=== PATIENT | male | born 1965 | race Caucasian/White ===

== ENCOUNTER 2017-05-16 15:46 | Observation (INO) | payer MEDICAID ==
[~2017-05-16] VITALS: Ht 180.3 cm; Wt 148.4 kg
--- NOTE | ~2017-05-16 | HEMODYNAMI ---
PATIENT:DORIAN ALLAN MEDICAL RECORD: [id number] : 67 LOCATION:[address] ADMISSION DATE: 05/16/17 Generatedon:05/17/20179:22 Patient name: DORIAN ALLAN Patient #: [id number] SSN: : 1965 Date of study: 05/17/2017 Page: Of Hemodynamic Procedure Report Patient Data Patient Demographics Procedure consent was obtained First Name: DORIAN Gender: Male Last Name: JERRELL : 1965 Patient #: [id number] Age: 51 year(s) Race: Additional ID: [id number] Contact details Address: [facility] [address] State: [place] City: [place] Zip code: [address] Past Medical History Allergies: No known allergies Admission Admission Data Admission Date: 05/16/2017 Admission Time: 21:19 Room #: 2104 Procedure Procedure Types Cath Procedure Diagnostic Procedure LHC LHC w/Coronaries Miscellaneous Procedures Moderate Sedation up to 30 minutes Procedure Description Procedure Date Procedure Date: 05/17/2017 Procedure Start Time: 9:04 Procedure End Time: 9:21 Procedure Staff Name Function Avtar Monge MD Performing Physician Darlyn Liu RT Monitor Ryan Fletcher RT Scrub Irvin Tsang RN Nurse Procedure Data Cath Procedure Fluoroscopy Diagnostic fluoroscopy Total fluoroscopy Time: 1.6 time: 1.6 min min Diagnostic fluoroscopy Total fluoroscopy dose: 725 dose: 725 mGy mGy Contrast Material Contrast Material Type Amount (ml) Isovue 300 47 Entry Location Entry Primary Successful Side Size Upsize Upsize Entry Closure Succes sful Closure Location (Fr) 1 (Fr) 2 (Fr) Remarks Device Remarks Femoral Right 5 Fr Exoseal artery Estimated blood loss: 5 ml Diagnostic catheters Device Type Used For End Catheter Placement MULTIPACK JL 4.0 5Fr Left Coronary catheter Angiography MULTIPACK 3DRC 5Fr Right Coronary catheter Angiography MULTIPACK Pigtail 5 Fr LV Angiography catheter Procedure Complications No complications Procedure Medications Medication Administration Route Dosage 0.9% NaCl I.V. 100 ml/hr Oxygen NC 2 l/min Heparin Flush Bag added to field 2 bags (1000units/500ml NS) Lidocaine 2% added to field 20 Versed I.V. 2 mg Fentanyl I.V. 25 mcg Hemodynamics Rest Heart Rate: 64 (bpm) Pressure Samples Time Site Value (mmHg) Purpose Heart Use Rate(bpm) 9:14 LV 155/21,45 EDP 81 Gradients Valve Time Site Site Mean SEP/DFP Peak To Heart Use 1 2 (mmHg) (sec/min) Peak Rate (mmHg) (bpm) Aortic 9:15 LV AO 78 Snapshots Pre Cath Intra NCS Post Cath Vital Signs Time Heart Resp SPO2 etCO2 NIBP (mmHg) Rhythm Pain Sedation Rate (ipm) (%) (mmHg) Status Level (bpm) 8:54:37 82 21 96 0 137/83(118) NSR 0 (11) 10(A) , No pain 8:59:41 82 26 95 0 138/82(113) NSR 0 (11) 10(A) , No pain 9:04:41 78 18 95 0 134/90(115) NSR 0 (11) 10(A) , No pain 9:09:41 79 17 96 0 146/89(121) NSR 0 (11) 10(A) , No pain 9:14:48 78 19 100 0 145/98(109) NSR 0 (11) 10(A) , No pain 9:19:47 80 19 95 0 Measuring NSR 0 (11) 10(A) , No pain 9:19:49 79 19 94 0 148/100(125) NSR 0 (11) 10(A) , No pain Medications Time Medication Route Dose Verified Delivered Reason Notes Effec tiveness by by 8:52:34 0.9% NaCl I.V. 100 Irvin Irvin Per ml/hr Trinh Tsang physician RN RN 8:52:45 Oxygen NC 2 Irvin Irvin Per l/min Trinh Tsang physician RN RN 8:52:56 Heparin Flush added 2 Irvin Irvin used for Bag to bags Trinh Tsang procedure (1000units/500ml field RN RN NS) 8:53:08 Lidocaine 2% added 20ml Irvin Irvin for local to vial Lorigan Lorigan anesthetic field RN RN 8:58:34 Versed I.V. 2 mg Irvin Irvin for Lorigan Lorigan sedation RN RN 8:58:44 Fentanyl I.V. 25 Irvin Irvin for mcg Lorigan Lorigan sedation RN hvac estimator Log Time Note 8:33:16 Tracy Giron RN sent for patient. Start room use. 8:33:18 Time tracking: Regular hours 8:33:22 Plan of Care:Hemodynamics will remain stable., Cardiac rhythm will remain stable., Comfort level will be maintained., Respiratory function will remain adequate., Patient/ family verbilizes understanding of procedure., Procedure tolerated without complication., Recovers from procedure without complications.. 8:43:54 Patient received from Med II to CCL 1 Alert and oriented. Tansferred to table in Supine position. 8:44:01 Warm blankets applied, and yaya hugger turned on for patient comfort. 8:44:02 Correct patient and procedure confirmed by team. 8:44:03 Signed procedure consent form obtained from patient. 8:44:04 ECG and BP/O2 sat monitors applied to patient. 8:47:57 Full Disclosure recording started 8:48:49 H&P Date Dictated: 05/17/2017 Within 30 days and on chart.. 8:48:57 Pre-procedure instructions explained to patient. 8:48:57 Pre-op teaching completed and patient verbalized understanding. 8:48:59 Family in patients room. 8:49:27 Patient NPO since Midnight. 8:49:33 Patient allergic to No known allergies 8:49:35 Is the patient allergic to Iodine/contrast media? No. 8:49:58 Is patient on blood thinner?Yes 8:50:02 ACC The patient was administered the following blood thiners within the last 24 hours: ACCPlavix 8:50:06 Patient diabetic? Yes. 8:50:07 If diabetic: On Metformin? No 8:50:21 Previous problem with sedation/anesthesia? No ? 8:50:22 Snore? Yes 8:50:23 Sleep apnea? Yes 8:50:24 Deviated septum? No 8:50:26 Opens mouth fully? Yes 8:50:26 Sticks out tongue? Yes 8:50:28 Airway obstruction? No ? 8:50:30 Dentures? No ? 8:50:34 Pre procedure: right dorsailis pedis pulse 2+ Normal; easily identifiable; not easily obliterated 8:50:36 Patient pain scale 0/10 ?. 8:50:43 IV patent on arrival in right wrist with 0.9% NaCl at KVO. 8:50:46 Lab results completed and on chart. 8:50:49 Right groin area was prepped with chlora-prep and draped in sterile fashion 8:50:51 Alarms reviewed by R. N. 8:50:51 Sharps counted by scrub and verified by R.N. 8:50:54 Use device set Femoral Dx 8:50:55 ACIST Syringe (38840) opened to sterile field. 8:50:55 Bag Decanter (2002S) opened to sterile field. 8:50:56 Medline Cath Pack ([id number]) opened to sterile field. 8:50:56 SHEATH 5FR [place] (IDV302) opened to sterile field. 8:50:57 DIAGNOSTIC WIRE .035 260cm J wire (568763) opened to sterile field. 8:50:58 ACIST Hand Control (47855) opened to sterile field. 8:50:58 ACIST Manifold (01725) opened to sterile field. 8:50:59 DIAGNOSTIC Multipack 5Fr catheter set (WK9630) opened to sterile field. 8:51:00 Tegaderm 4 x 4 (1626W) opened to sterile field. 8:51:01 MICROPUNCTURE 4FR Cook (P47506) opened to sterile field. 8:52:34 0.9% NaCl 100 ml/hr I.V. was administered by Irvin Tsang RN; Per physician; 8:52:45 Oxygen 2 l/min NC was administered by Irvin Tsang RN; Per physician; 8:52:56 Heparin Flush Bag (1000units/500ml NS) 2 bags added to field was administered by Irvin Tsang RN; used for procedure; 8:53:08 Lidocaine 2% 20ml vial added to field was administered by Irvin Tsang RN; for local anesthetic; 8:53:13 Vital chart was started 8:57:32 Final Timeout: patient, procedure, and site verified with staff and physician. All members of the team are in agreement. 8:57:35 Right groin site verified by team. 8:57:37 Physical assessment completed. ASA score P 2 - A patient with mild systemic disease as per Avtar Monge MD. 8:57:41 Sedation plan: IV Moderate Sedation Medication:Versed, Fentanyl 8:58:34 Versed 2 mg I.V. was administered by Irvin Tsang RN; for sedation; 8:58:41 Baseline sample Acquired. 8:58:44 Fentanyl 25 mcg I.V. was administered by Irvin Tsang RN; for sedation; 9:04:08 Procedure started. 9:04:11 Local anesthetic to right femoral artery with Lidocaine 2% by Avtar Monge MD.INITIAL ACCESS ONLY 9:07:49 Zero performed for pressure channel P1 9:07:53 Zero performed for pressure channel P1 9:07:59 Access obtained with 4Fr micropunture. 9:08:09 A 5 Fr sheath was inserted into the Right Femoral artery 9:09:34 A MULTIPACK JL 4.0 5Fr catheter was advanced over the wire and used for Left Coronary Angiography. 9:11:00 Catheter removed. 9:11:09 A MULTIPACK 3DRC 5Fr catheter was advanced over the wire and used for Right Coronary Angiography. 9:13:09 Catheter removed. 9:13:16 A MULTIPACK Pigtail 5 Fr catheter was advanced over the wire and used for LV Angiography. 9:13:47 EXOSEAL 5Fr (EX500) opened to sterile field. 9:15:20 LV gram done using COPE 9:15:24 LV hemodynamics recorded. 9:15:26 Injector settings: Ml/sec: 12, Volume: 8, 9:15:50 Catheter removed. 9:15:58 Sheath removed intact; hemostasis achieved with Exoseal to the Right Femoral artery. 9:16:00 Procedure ended.(Physican Out) 9:16:09 Fluoroscopy time 01.60 minutes. 9:16:13 Flurop Dose total: 725 9:16:13 Fluoroscopy dose: 725 mGy 9:16:30 Contrast amount:Isovue 300 47ml. 9:16:31 Sharps counted by scrub and verified by R.N. 9:16:32 Insertion/operative site no bleeding no hematoma. 9:16:37 Post-op/insertion site Right Femoral artery dressed using a 4 x 4 and Tegaderm. 9:16:40 Post right femoral artery:stable, clean and dry 9:16:41 Post Procedure Pulses reassessed and unchanged 9:16:44 Post-procedure physical assessment completed. ASA score P 2 - A patient with mild systemic disease as per Avtar Monge MD. 9:16:46 Post procedure rhythm: unchanged. 9:16:48 Estimated blood loss: 5 ml 9:16:49 Post procedure instruction explained to patient.Patient verbalizes understanding. 9:16:49 Patient needs reinforcement of post procedure teaching. 9:17:02 Procedure type changed to Cath procedure, Diagnostic procedure, LHC, LHC w/Coronaries, Miscellaneous Procedures, Moderate Sedation up to 30 minutes 9:17:10 Procedure Complication : No complications 9:17:12 See physician's report for complete and final results. 9:20:12 Procedure and supply charges have been captured, reviewed, submitted and are correct. 9:21:40 Vital chart was stopped 9:21:44 Report given to PCU. 9:21:48 Patient transfered to PCU with Bed. 9:21:50 Procedure ended. 9:21:50 Full Disclosure recording stopped 9:21:58 End room use (Document Last) Device Usage Item Name Manufacture Quantity Catalog Hospital Part Current Minimal Lot# / Number Charge Number Stock Stock Serial# Code ACIST Syringe Acist 1 18594 294866 039181 554649 20 (89771) Medical Systems Inc Bag Decanter Microtek 1 2001S 334065 84780 968431 5 (2001S) Medical Inc. Medline Cath Cardinal 1 [id number] 939197 39023 078518 5 Pack Health ([id number]) SHEATH 5FR Terumo 1 [id number] 994387 705933 383385 40 [place] (OES479) DIAGNOSTIC St [place] 1 649726 373796 907311 356962 30 WIRE .035 260cm J wire (900545) ACIST Hand Acist 1 19080 436350 891747 335268 5 Control Medical (51155) Systems Inc ACIST Acist 1 12437 891861 167680 787971 5 Manifold Medical (98687) Systems Inc DIAGNOSTIC Cardinal 1 [id number] 504142 02051 548533 30 Multipack 5Fr Health catheter set (FV0888) Tegaderm 4 x 3M 1 1626W 134864 987009 341058 5 4 (1626W) MICROPUNCTURE Status Overload Medical 1 [id number] 183624 290164 642524 5 4FR Vincent (X72396) MULTIPACK JL Cardinal 1 468560 5 4.0 5Fr Health catheter MULTIPACK Cardinal 1 068817 5 3DRC 5Fr Health catheter MULTIPACK Cardinal 1 314169 5 Pigtail 5 Fr Health catheter EXOSEAL 5Fr Cardinal 1 EX500 580429 069535 135685 10 (EX500) Health Signature Audit [place] Stage Time Signature Unsigned Intra-Procedure 05/17/2017 Darlyn 9:22:08 AM Counts RT(R) Signatures Monitor : Darlyn Signature : Counts RT Date : Time : [address] [address]
--- NOTE | ~2017-05-16 | EC ---
PATIENT:DORIAN ALLAN DATE OF SERVICE: 05/16/17 SEX: M MEDICAL RECORD: [id number] DATE OF : 67 LOCATION:D.M2 [address]210 AGE OF PATIENT: 51 ADMISSION DATE: 05/16/17 REFERRING PHYSICIAN: INTERPRETING PHYSICIAN: RANDEE TRUONG MD ECHOCARDIOGRAM REPORT ECHO CHARGES 4 ECHO COMPLETE CLINICAL DIAGNOSIS: NON-Q OH ECHOCARDIOGRAPHIC MEASUREMENTS (adult normal given) AC root (d.<3.7cm) 3.5 cm LV Septum d (<1.2 cm> 1.1 cm Valve Excursion 2.0 cm LV Septum (systole) 1.5 cm Left Atria (s.<4.0cm> 4.8 cm LVPW d(<1.2cm) 1.4 cm RV (d.<2.3cm) 2.9 cm LVPW (sytole) 2.1 cm LV diastole(<5.6CM) 7.0 cm MV E-F(>70mm/sec) cm LV systole 5.2 cm LVOT Diameter 2.0 cm MV exc.(>10mm) cm Est.ejection fraction (50-75%) % Pericardial Effusion N DOPPLER: LVIT cm/sec A 39.0 cm/sec E 124 cm/sec LA cm/sec RVSP 21.0 mmHg LVOT 101 cm/sec AOP1/2T m/s Asc. Ao 141 cm/sec RVOT 60.0 cm/sec RA cm/sec PA 84.0 cm/sec AV Gradient Peak 8.0 mmHg AV Mean 4.2 mmHg AV Area 2.2 cm MV Gradient Peak 7.0 mmHg MV Mean 2.6 mmHg MV Area cm COMMENTS: Stem Roller: Libby SANTANAOE Life Skills Coach: Nabil Truong TAPE# PACS DATE OF SERVICE: 05/17/2017 PROCEDURE: Transthoracic echocardiogram. FINDINGS: 1. The left ventricle has moderate concentric left ventricular hypertrophy. It is difficult to visualize endocardial structures and may be reasonable to repeat this study with a contrast; however, there appears to be mild reduction in function and dilatation of the left ventricular cavity and global hypokinesis. Inflow characteristics show a pseudonormalization. ECHOCARDIOGRAM REPORT [id number] DORIAN ALLAN 2. There is trace to mild mitral regurgitation. 3. Tricuspid valve is not well visualized and there was not a good envelope to estimate RVSP. 4. The right ventricle is normal size and normal function. 5. The right atrium is shown to be mildly dilated. 6. The left atrium is shown to be severely dilated. 7. The pulmonic valve is not well visualized. IMPRESSION: There is suggestion of a global hypokinesis and mild cardiomyopathy. The overall ejection fraction is difficult to ascertain. It may be reasonable to do a nuclear ventriculogram on this patient given he is in sinus rhythm to get a good estimation of his systolic function or possibly a contrasted echocardiogram. TRANSINT:[id number] Voice Confirmation ID: [id number] DOCUMENT ID: [id number] 05/20/2017 Edited to correct date of service, dm. RANDEE TRUONG MD at 1208 CC: [id number] DICTATION DATE: 05/18/17 1114 TELECOMMUNICATION LINES REPAIRER: 05/18/17 1251 DIS IN 05/18/17 [facility] [address] [place] [address]
[~2017-05-16 15:46] MED LIST: ACETAMINOPHEN325 MG PO; ALDACTONE25 MG PO; LIBRIUM25 MG PO; LOPRESSOR25 MG PO; METOPROLOL TART50 MG PO; NICODERM C1 PATCH .3 TRANSDERM; ZESTRIL20 MG PO
[2017-05-16 16:49] LABS: BASOPHILS 0.4 % (0-2); EOSINOPHILS 0.9 % (0-7); HEMATOCRIT 45.1 % (42.0-54.0); HEMOGLOBIN 14.6 g/dL (13.5-17.5); IMMATURE GRANULOCYTES 0.2 % (0-5); LYMPHOCYTES 6.9 % (15-50); MCH 30.2 pg (26.0-34.0); MCHC 32.4 g/dL (31.0-37.0); MCV 93.4 fL (80.0-100.0); MEAN PLATELET VOLUME 11.5 fL (7.4-10.4); MONOCYTES 4.5 % (2-11); NEUTROPHILS 87.1 % (40-80); PLATELET COUNT 141 10x3/uL (130-400); RBC 4.83 10x6/uL (4.20-6.10); RDW 14.6 % (11.5-14.5); WBC 10.3 10x3/uL (4.8-10.8)
[2017-05-16 17:14] LABS: ALBUMIN 2.5 g/dL (3.4-5.0); ALKALINE PHOSPHATASE 150 U/L (46-116); ALT (SGPT) 29 U/L (10-68); BILIRUBIN - TOTAL 0.92 mg/dL (0.2-1.3); CALC OSMOLALITY 285 mosm/kg (275-300); CALCIUM 7.9 mg/dL (8.5-10.1); CARBON DIOXIDE 27.9 mmol/L (21.0-32.0); CHLORIDE - SERUM 107 mmol/L (98-107); CREATININE - SERUM 1.8 mg/dL (0.6-1.3); GLUCOSE 107 mg/dL (74-106); POTASSIUM - SERUM 3.6 mmol/L (3.5-5.1); SODIUM 143 mmol/L (136-145); UREA NITROGEN 16 mg/dL (7-18); eGFR NON AFRICAN AMERICAN 43 mL/min (90-120)
[2017-05-16 17:29] LABS: CHOL - HDL RATIO 2.6 ratio (2.3-4.9); CHOLESTEROL, TOTAL 155 mg/dL (0-200); CKMB 2.7 U/L (0.0-3.6); CREATINE KINASE 217 UL (21-232); HDL CHOLESTEROL 60 mg/dL (32-96); LDL CHOLESTEROL 79 mg/dL (0-100); LDL-HDL RATIO 1.3 ratio (1.5-3.5); TRIGLYCERIDE 81 mg/dL (30-200)
[2017-05-16 17:37] LABS: TROPONIN-I 0.142 ng/mL (0.000-0.060)
[2017-05-16] MEDS ORDERED: GLIMEPIRIDE2 MG PO (21:58)
[2017-05-16] MEDS ORDERED: COREG25 MG PO (21:59)
[2017-05-16] MEDS ORDERED: GLUCOPHAGE500 MG PO (22:00)
[2017-05-16] MEDS ORDERED: PRINIVIL20 MG PO (22:02)
[2017-05-17] VITALS (7 sets, daily range): BP systolic 120–174; BP diastolic 71–112; Ht 180.3 cm; Wt 148.4 kg
[2017-05-17 08:04] LABS: BASOPHILS 1.2 % (0-2); HEMATOCRIT 43.2 % (42.0-54.0); IMMATURE GRANULOCYTES 0.2 % (0-5); LYMPHOCYTES 13.1 % (15-50); MCH 30.5 pg (26.0-34.0); MCHC 32.4 g/dL (31.0-37.0); MCV 94.1 fL (80.0-100.0); MEAN PLATELET VOLUME 11.8 fL (7.4-10.4); MONOCYTES 10.7 % (2-11); NEUTROPHILS 70.8 % (40-80); PLATELET COUNT 137 10x3/uL (130-400); RBC 4.59 10x6/uL (4.20-6.10); RDW 14.8 % (11.5-14.5)
[2017-05-17 08:06] LABS: ANION GAP 15.8 mmol/L (8-16); CALCIUM 7.8 mg/dL (8.5-10.1); CARBON DIOXIDE 23.7 mmol/L (21.0-32.0); CREATININE - SERUM 1.7 mg/dL (0.6-1.3); POTASSIUM - SERUM 3.5 mmol/L (3.5-5.1)
[2017-05-18] VITALS: BP 142/86
[2017-05-18 06:05] VITALS: BP 126/72
[2017-05-18 06:26] LABS: BASOPHILS 1.4 % (0-2); EOSINOPHILS 5.2 % (0-7); HEMATOCRIT 43.5 % (42.0-54.0); HEMOGLOBIN 13.8 g/dL (13.5-17.5); IMMATURE GRANULOCYTES 0.4 % (0-5); LYMPHOCYTES 18.6 % (15-50); MCH 29.9 pg (26.0-34.0); MCHC 31.7 g/dL (31.0-37.0); MCV 94.2 fL (80.0-100.0); MEAN PLATELET VOLUME 11.1 fL (7.4-10.4); MONOCYTES 11.8 % (2-11); NEUTROPHILS 62.6 % (40-80); PLATELET COUNT 142 10x3/uL (130-400); RBC 4.62 10x6/uL (4.20-6.10); RDW 14.7 % (11.5-14.5); WBC 5.2 10x3/uL (4.8-10.8)
[2017-05-18 06:37] LABS: ANION GAP 12.2 mmol/L (8-16); CALCIUM 7.9 mg/dL (8.5-10.1); CARBON DIOXIDE 26.8 mmol/L (21.0-32.0); CREATININE - SERUM 1.4 mg/dL (0.6-1.3)
[2017-05-18 08:36] VITALS: BP 135/89
== END 2017-05-18 12:03 | disposition home or self-care (01) ==
LOC: D.ER 15:46 → D.M2 21:19 → OBSVTIME 21:19 → D.M2 21:19
PROVIDERS: Family Medicine; Internal Medicine Cardiovascular Disease; Internal Medicine Nephrology
DX: I21.4 Non-ST elevation (NSTEMI) myocardial infarction (principal); I11.0 Hypertensive heart disease with heart failure; I50.31 Acute diastolic (congestive) heart failure; F15.10 Other stimulant abuse, uncomplicated; Z72.0 Tobacco use; G47.33 Obstructive sleep apnea (adult) (pediatric); Z91.19 Patient's noncompliance with other medical treatment and regimen

== ENCOUNTER 2017-06-30 14:28 | Emergency (ER) | payer MEDICAID ==
[2017-05-17 13:15] VITALS: BMI 22.0
[~2017-06-30 14:28] MED LIST changes: +COREG25 MG PO; +GLIMEPIRIDE2 MG PO; +GLUCOPHAGE500 MG PO; +PRINIVIL20 MG PO
== END 2017-06-30 18:32 | disposition home or self-care (01) ==
LOC: D.ER 14:28
DX: M25.571 Pain in right ankle and joints of right foot (principal); M10.071 Idiopathic gout, right ankle and foot; I50.9 Heart failure, unspecified; I10 Essential (primary) hypertension